=== PATIENT | female | born 1990 | race Caucasian/White ===

== ENCOUNTER 2016-10-23 21:01 | Emergency (ER) | payer OTHER ==
[~2016-10-23] VITALS: Ht 172.7 cm; Wt 71.7 kg
[2016-10-23 21:02] VITALS: BP 136/85
[2016-10-23] MEDS ORDERED: BIRTH CONTROL (21:14)
== END 2016-10-23 23:44 | disposition home or self-care (01) ==
LOC: M ED 22:50
DX: E10.649 Type 1 diabetes mellitus with hypoglycemia without coma (principal)